=== PATIENT | male | born 1965 | race Caucasian/White ===

== ENCOUNTER 2018-05-14 12:15 | Emergency (ER) | payer OTHER ==
[~2018-05-14] VITALS: Ht 182.8 cm; Wt 90.7 kg
[~2018-05-14 12:15] MED LIST: ANAPROX DS550 MG PO; CLINDAMYCIN HC300 MG PO; HYDROCODONE BIT1 T11 PO; IBUPROFEN600 MG PO; Motrin,Rufen800 MG PO; NORCO 5-325 TA1 EACH PO; PENICILLIN-VK500 MG PO; PREDNISONE10 MG PO; Peridex 473 ML473 ML PO
[2018-05-14] MEDS ORDERED: FLONASE ALLERG9.9 ML NAS (12:21)
[2018-05-14] MEDS ORDERED: CLARITIN10 MG PO (12:21)
[2018-05-14] MEDS ORDERED: PREDNISONE10 MG PO (12:21)
== END 2018-05-14 13:09 | disposition home or self-care (01) ==
LOC: ED 12:15
DX: J01.90 Acute sinusitis, unspecified (principal); R03.0 Elevated blood-pressure reading, without diagnosis of hypertension